=== PATIENT | male | born 2000 | race Asian ===

== ENCOUNTER → 2024-06-14 12:46 | Outpatient (CLI) | payer OTHER, SELFPAY ==
--- NOTE | 2024-06-14 12:48 | DI.RAD.S_ITS ---
PROCEDURE: XR CERVICAL SPINE 2V OR 3V INDICATIONS: Cervicalgia TECHNIQUE: 3 view(s) of the cervical spine were acquired. COMPARISON: None. FINDINGS: Bones: No fractures or dislocations to the T1 level. The lateral masses of C1 appear intact on the odontoid view. No suspicious bony lesions. Soft tissues: No prevertebral soft tissue swelling. IMPRESSION: No displaced fracture or traumatic subluxation. Dictated by: Pierce Ronquillo M.D. on 06/14/2024 at 13:25 Approved by: Pierce Ronquillo M.D. on 06/14/2024 at 13:25
== END ==
PROVIDERS: Referring Provider Physician Assistant Surgical; Visit Provider Physician Assistant Surgical
DX: M54.2 Cervicalgia (principal)
CPT/HCPCS: 72040